=== PATIENT | male | born 1995 | race Caucasian/White ===

== ENCOUNTER 2016-12-17 03:21 | Emergency (ER) | payer OTHER, BC ==
[~2016-12-17] VITALS: Ht 177.8 cm; Wt 85.4 kg
[2016-12-17 04:32] VITALS: BP 142/99
== END 2016-12-17 04:33 | disposition home or self-care (01) ==
LOC: EME 03:21
DX: S61.412A Laceration without foreign body of left hand, initial encounter (principal); W22.8XXA Striking against or struck by other objects, initial encounter
CPT/HCPCS: 99281; 99283